=== PATIENT | female | born 1980 | race Caucasian/White ===

== ENCOUNTER → 2023-11-02 15:22 | Outpatient (BNVA) | payer OTHER, SELFPAY | PROVIDERS: PCP Nurse Practitioner Family; Visit Provider Nurse Practitioner Family | DX: R23.2 Flushing (principal); I10 Essential (primary) hypertension; R53.83 Other fatigue; K13.70 Unspecified lesions of oral mucosa | CPT/HCPCS: 80053; 80061; 82672; 84144; 84403; 84443; 85025 ==

== ENCOUNTER → 2024-08-11 08:59 | Outpatient (BNVA) | payer OTHER, SELFPAY | PROVIDERS: PCP Nurse Practitioner Family; Visit Provider Nurse Practitioner Family | DX: I10 Essential (primary) hypertension (principal); R53.83 Other fatigue; R55 Syncope and collapse; R42 Dizziness and giddiness; E78.2 Mixed hyperlipidemia | CPT/HCPCS: 80053; 80061; 84439; 84443; 85025; 87070; 87205 ==

== ENCOUNTER 2024-09-09 15:12 | Outpatient (CLI) | payer OTHER, SELFPAY ==
--- NOTE | 2024-09-09 15:20 | USR_ITS ---
PROCEDURE INFORMATION: Exam: US Pelvis, Complete, Non-Obstetric Exam date and time: 09/09/2024 4:20 PM Age: 43 years old Clinical indication: Menstruation abnormalities; Excessive menstruation; Additional info: N92.1 - excessive and frequent menstruation with irregula. . . TECHNIQUE: Imaging protocol: Transabdominal pelvic nonobstetric ultrasound. Complete exam. Real time ultrasound with image documentation. COMPARISON: No relevant prior studies available. FINDINGS: Uterus: Nabothian cysts are noted. There appears to be a submucosal fibroid invading the myometrium. Possible pedunculated fibroid also noted. The uterus measures 3.8 x 4.7 cm. Endometrial thickness is 1 cm. Right ovary/adnexa: Irregular thick-walled cystic structure in the right ovary measuring 1.4 x 1.2 x 1.2 cm. Otherwise preserved flow to the right ovarian parenchyma. Left ovary/adnexa: There are some follicular changes in the left ovary. Preserved flow to the left ovary. Intraperitoneal space: There is some free fluid in the pelvic cul-de-sac. Urinary bladder: Normal. US/US pelv w/transvag [id number] IMPRESSION: 1. Uterine fibroids. One of which fibroid appears to be a submucosal fibroid. This can be better assessed with hysterosalpingogram. Endometrial stripe is 1 cm and may still be within the normal limits of a menstruating female. 2. Thick walled cystic structure in the right ovary may represent a hemorrhagic cyst. However atypical features suggest O rads 3 lesion. Precautionary follow up in 3-6 months' time is recommended.
--- NOTE | 2024-09-09 15:21 | USCV_ITS ---
JeromyRoselyn howard Age: 43 Gender: F : 1980 Exam Date: 09/09/2024 16:00 Ordering Phys: Misa Alexander-Pepe RAINEYP Technologist: [place] [facility] [place]: [place] pain HISTORY: Lower extremity pain. RIGHT PROCEDURES: Venous duplex imaging was performed in only the right lower extremity. The following venous structures were evaluated: common femoral vein, profunda vein, proximal portion of the greater saphenous vein, superficial femoral vein, and the popliteal vein. In addition, the posterior tibial and peroneal trunk were evaluated. FINDINGS: No evidence of DVT seen in any vessel visualized at this time. CONCLUSIONS No evidence of right lower extremity DVT. Hussein Rincon MD (Electronically Signed) Final Date: 09 Sep 2024 16:24 S
== END 2024-09-09 15:13 | disposition home or self-care (01) ==
LOC: RAD 15:15
PROVIDERS: PCP Nurse Practitioner Family; Visit Provider Nurse Practitioner Family
DX: N92.1 Excessive and frequent menstruation with irregular cycle (principal); R42 Dizziness and giddiness; D25.0 Submucous leiomyoma of uterus; R93.89 Abnormal findings on diagnostic imaging of other specified body structures; N88.8 Other specified noninflammatory disorders of cervix uteri
CPT/HCPCS: 76830; 76856; 93971

== ENCOUNTER → 2024-09-14 11:42 | Outpatient (BNVA) | payer OTHER, SELFPAY | PROVIDERS: PCP Nurse Practitioner Family; Visit Provider Podiatrist Foot & Ankle Surgery | DX: M77.31 Calcaneal spur, right foot (principal); M72.2 Plantar fascial fibromatosis; M79.671 Pain in right foot | CPT/HCPCS: 73630 ==

== ENCOUNTER → 2024-11-03 09:46 | Outpatient (BNVA) | payer OTHER, SELFPAY | PROVIDERS: PCP Nurse Practitioner Family; Visit Provider Obstetrics & Gynecology | DX: Z12.4 Encounter for screening for malignant neoplasm of cervix (principal) | CPT/HCPCS: 87624 ==

== ENCOUNTER → 2024-11-08 10:53 | Outpatient (BNVA) | payer OTHER, SELFPAY | PROVIDERS: PCP Nurse Practitioner Family; Visit Provider Obstetrics & Gynecology | DX: D25.9 Leiomyoma of uterus, unspecified (principal) | CPT/HCPCS: 76830; 76856 ==

== ENCOUNTER 2024-12-27 08:56 | Day surgery (SDC) | payer OTHER, SELFPAY ==
[2024-12-27] VITALS (10 sets, daily range): BP systolic 117–145; BP diastolic 73–92; PULSE 59–72; RESP 11–18; TEMP 36.1–36.7; O2SAT 95–100; BMI 30.2
--- NOTE | 2024-12-27 05:11 | W.PM.OPSFHP ---
Same Day Surgery H&P Indication for Procedure/HPI DATE OF PROCEDURE: December 27, 2024 CHIEF COMPLAINT/INDICATIONFOR SURGICAL PROCEDURE: abnormal uterine bleeding PREOP DIAGNOSIS: abnormal uterine bleeding PLANNED PROCEDURE: Operation Date: 12/27/24 11:20 Proposed Procedures p Hysteroscopy w/ Endometrial Sampling 40496 30315 D25.0 N83.9(Not Applicable) - Eirc Estrada MD s POSSIBLE Endometrial Poylpectomy(Not Applicable) - Eric Estrada MD Medications/Allergies* Allergies/Adverse Reactions Allergy/AdvReac Type Severity Reaction Status Date / Time No Known Allergies Allergy Verified 11/03/24 07:31 Pertinent History/Comorbid Conditions* Medical History (Updated 11/21/24 @ 10:23 by Eric Estrada MD) Syncope Surgical History (Updated 08/11/24 @ 08:35 by NANCI Longoria) No pertinent past surgical history Family History (Updated 11/03/24 @ 08:20 by Kayla Mckinnon) Hyperlipidemia Mother Lung disease Father copd Cancer Grandmother maternal lung Thyroid disease Mother Denies family history of Diabetes Chronic kidney disease (CKD) Hypertension Stroke Social History Smoking and tobacco/nicotine status: never used tobacco/nicotine Alcohol intake: never Substance/Drug Use: never Adopted: No Caregiver/support person: No Lives independently: No Household members: spouse Marital status: service: No Current occupational status: employed Sexually active: Yes Do you think of yourself as: Straight/Heterosexual Current gender identity: Female Pertinent Exam Findings alert, oriented x 3, clear to auscultation bilaterally and regular rate & rhythm Recommendations Surgery/Procedure today Coding Level of Care Code Acute Code for Chg Fwd
--- NOTE | 2024-12-27 09:15 | W.PM.OPSUD ---
Surgery/Procedure H&P Update DATE OF PROCEDURE: December 27, 2024 DATE H&P PERFORMED: 12/27/24 H&P UPDATE INFORMATION: I have reviewed H&P completed within last 30 days, I have examined patient prior to procedure and No changes to prior documentation PREOP DIAGNOSIS: abnormal uterine bleeding PLANNED PROCEDURE: Operation Date: 12/27/24 11:20 Proposed Procedures p Hysteroscopy w/ Endometrial Sampling [id number] D25.0 N83.9(Not Applicable) - Eric Estrada MD s POSSIBLE Endometrial Poylpectomy(Not Applicable) - Eric Estrada MD
[2024-12-27 09:31] LABS: OR HCG Qualitative Urine Negative (Negative)
--- NOTE | 2024-12-27 09:34 | ANES.PREANE2 ---
Pre-Anesthetic Assessment Height/Weight: Height 1.55 m Weight 72.575 kg Temp Pulse Resp BP Pulse Ox O2 Del Method 97.3 F L 72 16 135/85 99 Room Air 12/27/24 09:15 12/27/24 09:15 12/27/24 09:15 12/27/24 09:15 12/27/24 09:15 12/27/24 09:15 Preop Diagnosis: abnormal uterine bleeding Operation Date: 12/27/24 11:20 Proposed Procedures p Hysteroscopy w/ Endometrial Sampling [id number] 20269 D25.0 N83.9(Not Applicable) - Eric Estrada MD s POSSIBLE Endometrial Poylpectomy(Not Applicable) - Eric Estrada MD Familial anesthetic complications: None Was Beta Alanna taken within 24 hours: N/A Was Clonidine taken within 24 hours: N/A Last intake: Intake Last Liquid Date 12/26/24 Last Liquid Time 22:00 Last Solid Date 12/26/24 Last Solid Time 18:00 Social No alcohol and No tobacco Exam alert, oriented x 3, clear to auscultation bilaterally and regular rate & rhythm Airway Mallampati: Class I Dentition: partials CV/HEM vasovagal syncope Anesthetic Plan ASA status: 1 Anesthesia: General Risk of > 500 ml blood loss (7ml/kg in children): No Medications/Allergies Home Medications ?Medication ?Instructions ?Recorded ?Confirmed ?Last Taken ?Type loratadine 10 mg tablet (Claritin) 10 mg PO DAILY #30 tabs 09/06/24 12/26/24 12/12/24 Rx Allergies Allergy/AdvReac Type Severity Reaction Status Date / Time No Known Allergies Allergy Verified 12/27/24 09:26 [facility] Anesthesia Medical History (Updated 11/21/24 @ 10:23 by Eric Estrada MD) Syncope Surgical History No pertinent past surgical history Family History (Updated 11/03/24 @ 08:20 by Kayla Mckinnon) Grandmother Cancer maternal lung Father Lung disease copd Mother Hyperlipidemia Thyroid disease Denies family history of Diabetes Chronic kidney disease (CKD) Hypertension Stroke Social History Smoking and tobacco/nicotine status: never used tobacco/nicotine Alcohol intake: never Substance/Drug Use: never Adopted: No Caregiver/support person: No Lives independently: No Household members: spouse Marital status: service: No Current occupational status: employed Sexually active: Yes Do you think of yourself as: Straight/Heterosexual Current gender identity: Female
--- NOTE | 2024-12-27 11:10 | PM.OP ---
Operative Report Date of procedure: December 27, 2024 Pre-op diagnosis: abnormal uterine bleeding Post-op diagnosis: same Post-op findings: normal endometrial cavity No polyps / fibroids Moderate amount of endometrial tissue Procedure done: hysteroscopy Curettage of uterus Implants: none Specimens removed/disposition: endometrial curettings Surgeon: Eric Estrada MD Anesthesia: MAC Estimated blood loss (mL): 0 Complications: none Findings: see above Condition: stable Disposition: PACU Brief History: 44 y.o. with abnormal uterine bleeding Procedure: Patient was taken to the operating room. Anesthesia was induced. Patient was placed in dorsolithotomy position, prepped and draped for hysteroscopy. A bivalve speculum was placed in the vagina. The anterior lip of the cervix was grasped with a sharp-toothed tenaculum. The cervix was serially dilated with Hegar dilators. . A hysteroscope was placed into the endometrial cavity. The endometrial cavity was seen to be normal. There were no polyps or fibroids. There was a moderate amount of endometrial tissue. The hysteroscope was then removed. Endometrial curettage was done with a sharp curette. Endometrial tissue was sent to pathology. The sharp-toothed tenaculum was removed. There was no bleeding from the endometrial cavity or cervix. The patient was then placed supine and awakened and taken to the PACU. Postop condition: stable EBL: none Sponge and instruments counts were normal x 2 Complications: none
--- NOTE | 2024-12-27 11:45 | ANE.PACU2 ---
Inpatient post-anesthesia follow up: Airway intact: Yes Vital signs: Temperature 97.0 F Pulse Rate 61 Respiratory Rate 18 Blood Pressure 135/92 Pulse Oximetry 99 Oxygen Delivery Me thod Room Air Oxygen Flow Rate 8 Fraction of Inspir ed Oxygen Hydration adequate: Yes Nausea and vomiting: No Pain level: 1 Mental status: Baseline
== END 2024-12-27 11:48 | disposition home or self-care (01) ==
PROVIDERS: PCP Nurse Practitioner Family; Visit Provider Obstetrics & Gynecology
PROC: 0UJD8ZZ Inspection of Uterus and Cervix, Via Natural or Artificial Opening Endoscopic (ICD-10-PCS; CPT 58555; principal; 2024-12-27 11:10)
DX: N93.9 Abnormal uterine and vaginal bleeding, unspecified (principal)
CPT/HCPCS: 58558; 81025; 88305; A4216; J1200; J2250; J2704; J3010; J7030